=== PATIENT | male | born 1955 | race Caucasian/White ===

== ENCOUNTER 2016-09-19 13:19 | Emergency (ER) | payer BC ==
[2016-09-19 13:54] VITALS: BP 120/66
--- NOTE | 2016-09-19 14:14 | CR ---
Cervical history: 60-year-old male injured left ankle. Interpretation: Severe sprain without sign of underlying fracture.. Bimalleolar soft tissue swelling and ankle joint effusion. No sign of underlying fracture or disruption of the tibiotalar mortise joint symmetry. Tiny heel spur forming at the insertion of the plantar aponeurosis base of the os calcis. No calcane al or hind foot fracture. CONCLUSION: Severe sprain.
[2016-09-19] MEDS ORDERED: Ibuprofen 800 MG Tab PO ONE (14:41)
--- NOTE | 2016-09-19 21:33 | ER ---
SUBJECTIVE: The patient is a 60-year-old male. 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 They were picking up and abruptly jerked upward about 4-5 inches and he was left with significant left ankle pain. He is very painful to walk on. He is not sure exactly what trauma he received, the forklift did not hit his foot but he was standing on the forklift. Denies any other problems. No calf tenderness, knee tenderness. It is all in the left ankle. PAST MEDICAL HISTORY: Significant for history of uveitis, cataract surgery, left eye surgery, CAD, hyperlipidemia, hypertension. He has had an angiogram. He has GERD, had a rectal bleed, appendectomy, colonoscopy, EGD, obesity, psoriasis, skin biopsy. He had chickenpox, measles, and mumps. CURRENT MEDICATIONS: Include: 1. Acetaminophen p.r.n. 2. Aspirin 325 mg p.o. daily. 3. Lisinopril 20 mg p.o. daily. 4. Crestor 40 mg p.o. daily. ALLERGIES: No allergies. 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 He does use chewing tobacco. No alcohol. No drugs. No smoking otherwise. REVIEW OF SYSTEMS: No fever, chills, recent illness, chest pain, shortness of breath, syncope, near syncope, head trauma, is negative except for the left ankle. OBJECTIVE: Vital signs: Stable he is afebrile. General: A very healthy-appearing, interactive, pleasant male. HEENT: Normocephalic and atraumatic. General: A and O x3. No respiratory distress. Very good historian. Extremities: Focused exam of left lower extremity shows no calf tenderness. No knee tenderness. His foot is nontender. No redness, swelling, deformity, or crepitus. He does have some swelling of the ankle. He has bimalleolar tenderness and good pulses. EMERGENCY ROOM COURSE: He was sent for x-ray. X-ray is negative for fractures. It was read as "severe sprain," does have some swelling and tenderness. ASSESSMENT: Left ankle sprain with x-rays not showing any fracture. PLAN: RICE, NSAIDs. Range of motion as able. Follow up with PCP as needed. If not better, get recheck of x-ray in a week or 2. Since an occult or stress- type fracture may become more visible by that time. MODL /[id number]
== END 2016-09-19 14:47 | disposition home or self-care (01) ==
LOC: DL.ED 13:19
DX: S93.402A Sprain of unspecified ligament of left ankle, initial encounter (principal); I25.10 Atherosclerotic heart disease of native coronary artery without angina pectoris; I10 Essential (primary) hypertension; E78.5 Hyperlipidemia, unspecified; E66.9 Obesity, unspecified; Z98.49 Cataract extraction status, unspecified eye; W22.8XXA Striking against or struck by other objects, initial encounter
CPT/HCPCS: 73600-LT; 99283